=== PATIENT | female | born 1965 | race Caucasian/White ===

== ENCOUNTER → 2017-12-14 | Outpatient (CLI) | payer OTHER ==
[~2017-12-14] MED LIST: AMLO2.5T PO; CALCTAB5 PO; FLAX100025; HYDR25TA4 PO; LISI40TA PO; MULTTAB58 PO; OMEG1400; OXYC5TAB PO; TRMCR130WC; VITACAP26
[2017-12-14 18:44] LABS: ALBUMIN 3.8 gm/dl (3.4-5.0); ALKALINE PHOSPHATASE 59 U/L (45-117); ALT/SGPT 44 U/L (12-78); AST/SGOT 38 U/L (15-37); TOTAL PROTEIN 7.4 gm/dl (6.4-8.2)
== END | disposition home or self-care (01) ==
LOC: C.LAB 16:18
PROVIDERS: ATTEND Psychiatry & Neurology Psychiatry
DX: Z51.81 Encounter for therapeutic drug level monitoring (principal); Z79.899 Other long term (current) drug therapy; F11.20 Opioid dependence, uncomplicated